=== PATIENT | female | born 2000 | race Caucasian/White ===

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

== ENCOUNTER 2020-06-22 16:21 | Inpatient (IN) | payer BC ==
[2020-06-22] MEDS ORDERED: SODIUM CHLORIDE 0.9% 1,000 ML IV ONE (16:57)
[2020-06-22] MEDS: ACETAMINOPHEN TAB 500 MG TAB PO PRN ×2 (18:01→22:17)
[2020-06-22] MEDS: ONDANSETRON 4 MG/2 ML VIAL IVP PRN (18:01)
[2020-06-22] MEDS: busPIRone HCl 10 MG TAB PO SCH (20:12)
--- NOTE | 2020-06-22 21:25 | P.HPPD ---
History of Present Illness H&P Date: 06/22/20 Chief Complaint: Vomiting and abdominal pain 20yo F with history of anxiety disorder intermittently associated with somatic complaints of vomiting and abdominal pain, admitted from the office today after visit for intractable vomiting and abdominal pain. The patient reports always dealing with some level of GI symptoms, made worse by milk, but now having GI complaints of abdominal pain, nausea, vomiting, and diarrhea that has progressed over the past 4 days The patient reports periumbilical pain and c/o couldn't even walk last night because of the pain and vomited multiple times after eating [employer]. She has kept down liquids, but reports multiple e pisodes of diarrhea last night and has not kept down solids in over 24hrs. She brought a bucket with her to the office and had to use the bathroom while she was at the office. She is well appearing on exam, but with moderate periumbilical and mild RLQ pain Her wt is down 20# from last visit ~1y ago, but is at a healthy wt for height. She has been afebrile and has no URI symptoms. She feels a little light headed today. She is sexually active, but just finished her menses and urine HCG negative in the office today. She was sent to the outpatient lab for Labs and X-ray, but then called the office requesting admission, rather than observing overnight at home, as she had further vomiting while at the outpatient lab. Review of Systems Constitutional: Reports weight loss, Reports fair state of general health, Reports abnormal sleep Ears, nose, mouth, throat: Reports lightheadedness, Denies headaches, Denies sore throat Cardiovascular: Denies palpitations Respiratory: Denies shortness of breath, Denies cough Gastrointestinal: Reports change in appetite, Reports abdominal pain, Reports nausea, Reports vomiting, Reports diarrhea, Denies hematemesis, Denies constipation Genitourinary: Denies irregular menses, Denies dysmenorrhea Integumentary: Denies rash Psychiatric: Reports anxiety, Reports other (somatic complaints) Allergic/Immunologic: Reports reaction to food (c/o intolerance to milk), Denies reaction to drugs Past Medical History Past Medical History: Asthma, Pneumonia Additional Past Medical History / Comment(s): 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 History of Any Multi-Drug Resistant Organisms: None Reported Past Surgical History: Adenoidectomy, Ear Surgery Additional Past Surgical History / Comment(s): acl reconstruction of left knee- 2013, Past Anesthesia/Blood Transfusion Reactions: No Reported Reaction Past Psychological History: Anxiety (with somatoform disorder-psychogenic vomiting), Depression Additional Psychological History / Comment(s): insomnia. Smoking Status: Never smoker Past Alcohol Use History: None Reported Past Drug Use History: None Reported - Past Family History Mother Family Medical History: No Reported History Father Family Medical History: Hyperlipidemia Additional Family Medical History / Comment(s): none Medications and Allergies Home Medications Medication Instructions Recorded Confirmed Type buPROPion XL [Wellbutrin XL] 150 mg PO DAILY 06/22/20 06/22/20 History busPIRone HCL 5 mg PO BID 06/22/20 06/22/20 History Allergies Allergy/AdvReac Type Severity Reaction Status Date / Time ibuprofen AdvReac Nausea & Verified 04/02/18 22:03 Vomiting Milk Containing Products AdvReac Nausea & Verified 04/02/18 22:03 [Dairy] Vomiting orange juice [[place]] AdvReac Nausea & Verified 06/22/20 17:02 Vomiting Exam Osteopathic Statement: *. No significant issues noted on an osteopathic structural exam other than those noted in the History and Physical/Consult. Vital Signs Temp Pulse Resp BP Pulse Ox 06/22/20 16:35 98.2 F 86 18 127/81 99 Intake and Output 06/22/20 06/22/20 06/22/20 06:59 14:59 22:59 Output Total 200 Balance -200 Output: Urine 150 Emesis 50 Other: Voiding Method Toilet Weight 59.7 kg - General Appearance well appearing, cooperative, alert, no distress - Constitutional normal weight - HEENT Head: normocephalic Eyes: other (pupils equal and reactive, conjunctiva clear) - Mouth Lips: normal Teeth: normal dentition Tonsils: normal - Neck Neck: normal position, thyroid normal - Cardiovascular Pulse volume: normal Cardiovascular: regular rate - Gastrointestinal tender to palpation (periumilical tenderness moderate and mild LLQ pain) - Integumentary no rash - Neurological motor function normal - Musculoskeletal Musculoskeletal: normal - Psychiatric no abnormal behavior Results - Laboratory Findings CBC, CMP, amylase and lipase, CMP and ESR all normal. UA negative except for blood and culture pending. Abd Xray negative. - Diagnostic Findings Abdominal x-ray: report reviewed Assessment and Plan (1) Vomiting and diarrhea Narrative/Plan: Clear liquids and advance as tolerated. 0.9NS bolus followed by D5 1/2 NS with 20 KCl/L at 100ml/hr maintenance rate. Zofran PRN nausea 8mg IV Q6H/PRN. Current Visit: Yes Status: Acute Code(s): R11.10 - VOMITING, UNSPECIFIED; R19.7 - DIARRHEA, UNSPECIFIED SNOMED Code(s): 035704119 (2) Periumbilical abdominal pain Narrative/Plan: Admit for observation. Consult surgery for r/o appendicitis and recommendations for any further imaging. 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 Current Visit: Yes Status: Acute Code(s): F45.8 - OTHER SOMATOFORM DISORDERS SNOMED Code(s): 538426552 Time with Patient: Greater than 30
[2020-06-22] MEDS: D5-0.45% NACL WITH KCL 20MEQ/L 1,000 ML IV SCH (22:18)
[2020-06-23] MEDS: ONDANSETRON 4 MG/2 ML VIAL IVP PRN ×3 (00:26→14:15)
[2020-06-23] MEDS: D5-0.45% NACL WITH KCL 20MEQ/L 1,000 ML IV SCH ×2 (06:41→13:23)
[2020-06-23] MEDS: ACETAMINOPHEN TAB 500 MG TAB PO PRN ×4 (06:45→20:35)
[2020-06-23] MEDS: buPROPion XL 150 MG TAB.ER.24H PO SCH (08:17)
[2020-06-23] MEDS: busPIRone HCl 10 MG TAB PO SCH ×2 (08:17→20:35)
--- NOTE | 2020-06-23 12:56 | P.PN ---
Subjective Progress Note Date: 06/23/20 Principal diagnosis: vomiting and abdominal pain Patlient admitted with vomiting and abdominal pain, hydration improved s/p IV fluid bolus and maintenance fluids, labs all normal, X-ray normal, no real change in symptoms overnight, still unable to tolerate full PO liquids, and sti ll with mild abdominal pain. Surgery evaluating patient and ordered biliary scan from which patient is returning now. Objective - Vital Signs Vital signs: Vital Signs Temp 98.2 F 06/23/20 08:35 Pulse 78 06/23/20 08:35 Resp 16 06/23/20 08:35 BP 114/75 06/23/20 08:35 Pulse Ox 99 06/23/20 08:35 Intake & Output 06/22/20 06/23/20 06/23/20 18:59 06:59 18:59 Intake Total 800 Output Total 200 800 Balance -200 800 -800 Weight 59.7 kg Intake: Intake, IV Titration 800 Amount D5-0.45% NaCl with KCl 800 20Meq/l 1,000 ml @ 100 mls/hr IV [facility] Rx#: [id number] Output: Urine 150 800 Emesis 50 Other: Voiding Method Toilet # Voids 2 - Constitutional General appearance: Present: average body habitus, no acute distress - Respiratory Respiratory: bilateral: CTA - Cardiovascular Rhythm: regular Heart sounds: normal: S1, S2 - Gastrointestinal General gastrointestinal: Present: normal bowel sounds, soft. Absent: distended, organomegaly Localized gastrointestinal: tender: midline (periumbilical pain) - Integumentary Integumentary: Present: normal - Neurologic Neurologic: Absent: focal deficits - Allied health notes Allied health notes reviewed: nursing Assessment and Plan (1) Vomiting and diarrhea Narrative/Plan: Clear liquids and advance as tolerated. D5 1/2 NS with 20 KCl/L at 100ml/hr maintenance rate. Zofran PRN nausea 8mg IV Q6H/PRN. Will obtain stool sample if patient with diarrhea today. Current Visit: Yes Status: Acute Code(s): R11.10 - VOMITING, UNSPECIFIED; R19.7 - DIARRHEA, UNSPECIFIED SNOMED Code(s): 561945875 (2) Periumbilical abdominal pain Narrative/Plan: Admit for observation. Surgery consult pending, ordered hepatobiliary scan, results pending. 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 Current Visit: Yes Status: Acute Code(s): F45.8 - OTHER SOMATOFORM DISORDERS SNOMED Code(s): 130314602
--- NOTE | 2020-06-23 13:48 | P.GSCN ---
<Dasha Spencer - Last Filed: 06/23/20 13:40> History of Present Illness Consult date: 06/23/20 History of present illness: CHIEF COMPLAINT: Abdominal pain HISTORY OF PRESENT ILLNESS: This is a 20-year-old female with a known history of somatoform autonomic dysfunction with GI symptoms as well as depression, anxiety and lactose intolerance. She denies any surgical history. Patient was a direct admit from her PCP office for abdominal pain with nausea and vomiting. Patient reports she's had symptoms for about 4 days. Pain has been located in the right side of the abdomen including the right upper quadrant and down his right lower quadrant. She also had diarrhea yesterday. She is currently on a clear liquid diet. She had abdominal x-ray yesterday shows no acute findings. She is still complaining of abdominal pain. Patient evaluated by Dr. arnold this morning and he has ordered a HIDA scan. She denies any fevers. But she does admit to having some chills and sweats. Patient seen and examined by Dr. arnold PAST MEDICAL HISTORY: See list. PAST SURGICAL HISTORY: See list. MEDICATIONS: See list. ALLERGIES: See list. SOCIAL HISTORY: No illicit drug use. REVIEW OF SYSTEMS: CONSTITUTIONAL: Denies fever or chills. HEENT: Denies blurred vision, vision changes, or eye pain. Denies hemoptysis CARDIOVASCULAR: Denies chest pain or pressure. RESPIRATORY: No shortness of breath. GASTROINTESTINAL: See HPI for pertinent findings HEMATOLOGIC: Denies bleeding disorders. GENITOURINARY: Denies any blood in urine or increased urinary frequency. SKIN: Denies pruitis. Denies rash. PHYSICAL EXAM: VITAL SIGNS: Reviewed GENERAL: Well-developed in no acute distress. HEENT: No sclera icterus. Extraocular movements grossly intact. Moist buccal mucosa. Head is atraumatic, normocephalic. No nasal drainage. ABDOMEN: Soft. Nondistended. Tenderness with palpation of the right upper quadrant and right lower quadrant. NEUROLOGIC: Alert and oriented. Cranial nerves II through XII grossly intact. LABORATORY DATA: WBC 6.2 hemoglobin 15.7 platelets 274 Sodium 142 creatinine 0.84 AST ALT normal Lipase normal UA negative for infection IMAGING: See above ASSESSMENT: 1. Right upper quadrant Abdominal pain with nausea and vomiting PLAN: -Follow up on HIDA scan results -Continue clear liquid diet -Continue IV fluids -Further recommendations forthcoming per surgeon Physician Construction Carpenter note has been reviewed by physician. Signing provider agrees with the documented findings, assessment, and plan of care. 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 History of Any Multi-Drug Resistant Organisms: None Reported Past Surgical History: Adenoidectomy, Ear Surgery Additional Past Surgical History / Comment(s): acl reconstruction of left knee- 2013, Past Anesthesia/Blood Transfusion Reactions: No Reported Reaction Past Psychological History: Anxiety (with somatoform disorder-psychogenic vomiting), Depression Additional Psychological History / Comment(s): insomnia. Smoking Status: Never smoker Past Alcohol Use History: None Reported Past Drug Use History: None Reported - Past Family History Mother Family Medical History: No Reported History Father Family Medical History: Hyperlipidemia Additional Family Medical History / Comment(s): none Medications and Allergies Home Medications Medication Instructions Recorded Confirmed Type buPROPion XL [Wellbutrin XL] 150 mg PO DAILY 06/22/20 06/22/20 History busPIRone HCL 5 mg PO BID 06/22/20 06/22/20 History Allergies Allergy/AdvReac Type Severity Reaction Status Date / Time ibuprofen AdvReac Nausea & Verified 04/02/18 22:03 Vomiting Milk Containing Products AdvReac Nausea & Verified 04/02/18 22:03 [Dairy] Vomiting orange juice [[place]] AdvReac Nausea & Verified 06/22/20 17:02 Vomiting Surgical - Exam Vital Signs Temp Pulse Resp BP Pulse Ox 98.2 F 86 18 127/81 99 06/22/20 16:35 06/22/20 16:35 06/22/20 16:35 06/22/20 16:35 06/22/20 16:35 <Vitaly Arnold - Last Filed: 06/24/20 14:41> Surgical - Exam Vital Signs Temp Pulse Resp BP Pulse Ox 98.2 F 86 18 127/81 99 06/22/20 16:35 06/22/20 16:35 06/22/20 16:35 06/22/20 16:35 06/22/20 16:35 Results - Labs 06/24/20 06:00 06/24/20 06:00 Abnormal Lab Results - Last 24 Hours (Table) 06/24/20 Range/Units 06:00 BUN 5 L (7-17) mg/dL Alkaline Phosphatase 33 L (38-126) U/L Diabetes panel 06/24/20 Range/Units 06:00 Sodium 138 (137-145) mmol/L Potassium 4.5 (3.5-5.1) mmol/L Chloride 106 (98-107) mmol/L Carbon Dioxide 26 (22-30) mmol/L BUN 5 L (7-17) mg/dL Creatinine 0.92 (0.52-1.04) mg/dL Glucose 88 (74-99) mg/dL Calcium 9.3 (8.4-10.2) mg/dL AST 22 (14-36) U/L ALT 11 (4-34) U/L Alkaline Phosphatase 33 L (38-126) U/L Total Protein 6.9 (6.3-8.2) g/dL Albumin 4.1 (3.5-5.0) g/dL Calcium panel 06/24/20 Range/Units 06:00 Calcium 9.3 (8.4-10.2) mg/dL Albumin 4.1 (3.5-5.0) g/dL Pituitary panel 06/24/20 Range/Units 06:00 Sodium 138 (137-145) mmol/L Potassium 4.5 (3.5-5.1) mmol/L Chloride 106 (98-107) mmol/L Carbon Dioxide 26 (22-30) mmol/L BUN 5 L (7-17) mg/dL Creatinine 0.92 (0.52-1.04) mg/dL Glucose 88 (74-99) mg/dL Calcium 9.3 (8.4-10.2) mg/dL Adrenal panel 06/24/20 Range/Units 06:00 Sodium 138 (137-145) mmol/L Potassium 4.5 (3.5-5.1) mmol/L Chloride 106 (98-107) mmol/L Carbon Dioxide 26 (22-30) mmol/L BUN 5 L (7-17) mg/dL Creatinine 0.92 (0.52-1.04) mg/dL Glucose 88 (74-99) mg/dL Calcium 9.3 (8.4-10.2) mg/dL Total Bilirubin 1.3 (0.2-1.3) mg/dL AST 22 (14-36) U/L ALT 11 (4-34) U/L Alkaline Phosphatase 33 L (38-126) U/L Total Protein 6.9 (6.3-8.2) g/dL Albumin 4.1 (3.5-5.0) g/dL Assessment and Plan Plan: Patient's HIDA scan shows a 4% ejection fraction consistent with chronic cholecystitis and biliary dyskinesia. Patient will undergo laparoscopic cholecystectomy.
--- NOTE | 2020-06-23 14:07 | NM ---
EXAMINATION TYPE: NM hepatobiliary w CCK DATE OF EXAM: 06/23/2020 COMPARISON: CT 05/16/2018 HISTORY: Abdominal pain and nausea TECHNIQUE: After the intravenous administration of 4 mCi Tc 99m Mebrofenin hepatobiliary scintigraphy is performed. Immediate images post injection. FINDINGS: There is satisfactory initial accumulation of tracer by the liver. The gallbladder is visualized wit hin 4 minutes. The small bowel activity is noted within 38 minutes. At one hour CCK was administere d, patient was injected with 1.2 mcg of Kinevac, and gallbladder ejection fraction is calculated at 4 %, in the abnormal low range. Therefore there is no scintigraphic evidence of cystic or common bile duct obstruction to suggest acute cholecystitis. IMPRESSION: Abnormal low gallbladder ejection fraction, correlate for possible gallbladder dyskinesia
[2020-06-23] MEDS: PANTOPRAZOLE 40 MG/10 ML VIAL IVP SCH (16:08)
[2020-06-24] MEDS: D5-0.45% NACL WITH KCL 20MEQ/L 1,000 ML IV SCH ×3 (00:13→19:04)
[2020-06-24] MEDS: ACETAMINOPHEN TAB 500 MG TAB PO PRN ×2 (04:07→20:01)
[2020-06-24] MEDS ORDERED: MORPHINE SULFATE 2 MG/ML SYRINGE IVP PRN (06:14)
[2020-06-24 06:27] LABS: Basophils % (A) 1 %; Eosinophils # (A) 0.2 k/uL (0-0.7); Eosinophils % (A) 4 %; HCT 42.4 % (34.0-46.0); Lymphocytes # (A) 2.1 k/uL (1.0-4.8); Lymphocytes % (A) 45 %; MCH 31.9 pg (25.0-35.0); MCV 96.8 fL (80.0-100.0); Mean Platelet Volume 8.1; Monocytes # (A) 0.3 k/uL (0-1.0); Monocytes % (A) 6 %; Neutrophils % (A) 42 %; Platelet Count 227 k/uL (150-450); RBC 4.38 m/uL (3.80-5.40); RDW 12.1 % (11.5-15.5); WBC 4.6 k/uL (4.0-11.0)
[2020-06-24 06:36] LABS: ALT 11 U/L (4-34); AST 22 U/L (14-36); African American GFR (CKD) >90 (>60 ml/min/1.73 sqM); Albumin 4.1 g/dL (3.5-5.0); Alkaline Phosphatase 33 U/L (38-126); Anion Gap 6 mmol/L; Blood Urea Nitrogen 5 mg/dL (7-17); Calcium 9.3 mg/dL (8.4-10.2); Carbon Dioxide 26 mmol/L (22-30); Chloride 106 mmol/L (98-107); Glucose 88 mg/dL (74-99); Non-African American GFR(CKD) >90 (>60 ml/min/1.73 sqM); Potassium 4.5 mmol/L (3.5-5.1); Sodium 138 mmol/L (137-145); Total Bilirubin 1.3 mg/dL (0.2-1.3); Total Protein 6.9 g/dL (6.3-8.2)
[2020-06-24] MEDS: MORPHINE SULFATE 2 MG/ML SYRINGE IVP PRN ×3 (08:18→12:28)
[2020-06-24] MEDS: buPROPion XL 150 MG TAB.ER.24H PO SCH (08:21)
[2020-06-24] MEDS: busPIRone HCl 10 MG TAB PO SCH ×2 (08:21→21:35)
[2020-06-24] MEDS: PANTOPRAZOLE 40 MG/10 ML VIAL IVP SCH (08:24)
[2020-06-24] MEDS: ONDANSETRON 4 MG/2 ML VIAL IVP PRN ×2 (08:25→18:57)
[2020-06-24] MEDS ORDERED: IV FLUID CONTINUATION 650 ML IV ONE (13:55)
[2020-06-24] MEDS ORDERED: HEPARIN SODIUM,PORCINE/PF 5,000 UNIT/0.5 ML SYRINGE SQ ONE (14:06)
[2020-06-24] MEDS ORDERED: ONDANSETRON 4 MG/2 ML VIAL ONE (14:07)
[2020-06-24] MEDS ORDERED: MIDAZOLAM 2 MG/2 ML VIAL IV ONE (14:13)
[2020-06-24] MEDS ORDERED: DEXAMETHASONE SOD PHOSPHATE 4 MG/ML 1 ML VIAL IV ONE (14:20)
[2020-06-24] MEDS ORDERED: LACTATED RINGERS 1,000 ML IV ONE ×2 (14:21→15:41)
[2020-06-24] MEDS ORDERED: HEPARIN SODIUM,PORCINE 5,000 UNIT/ML 1 ML VIAL SQ ONE (14:39)
[2020-06-24] MEDS ORDERED: ROCURONIUM 10 MG/ML (5 ML VIAL) IV ONE (15:01)
[2020-06-24] MEDS ORDERED: LIDOCAINE 1% INJ 10MG/ML (20 ML MDV) ONE (15:01)
[2020-06-24] MEDS ORDERED: SUCCINYLCHOLINE CHLORIDE 100 MG/5 ML SYR IV ONE (15:01)
[2020-06-24] MEDS ORDERED: NEOSTIGMINE 1 MG/ML 10 ML VIAL ONE (15:01)
[2020-06-24] MEDS ORDERED: PROPOFOL 10 MG/ML 20 ML VIAL IV ONE (15:01)
[2020-06-24] MEDS ORDERED: fentaNYL (PF) 50 MCG/ML 2 ML AMP ONE (15:01)
[2020-06-24] MEDS ORDERED: MIDAZOLAM 2 MG/2 ML VIAL ONE (15:01)
[2020-06-24] MEDS ORDERED: GLYCOPYRROLATE 0.2 MG/ML 2 ML VIAL ONE (15:01)
[2020-06-24] MEDS ORDERED: BUPIVACAINE (PF) 0.25% 30 ML VIAL SQ ONE (15:26)
--- NOTE | 2020-06-24 15:55 | P.OP ---
Date of Procedure: 06/24/20 Preoperative Diagnosis: Cholecystitis Postoperative Diagnosis: Cholecystitis Procedure(s) Performed: Laparoscopic cholecystectomy Anesthesia: TEJINDER Surgeon: Vitaly Damon Estimated Blood Loss (ml): 5 Pathology: other (Gallbladder) Condition: stable Disposition: PACU Description of Procedure: The patient was placed on the operating table. The patient received a general endotracheal tube anesthesia. The patients abdomen was prepped and draped in the usual sterile fashion. Through an infraumbilical stab incision, the fascia of the anterior abdominal wall was grasped with a pair of Kochers and then the Veress needle was placed in the peritoneal cavity. Position of the Veress needle was confirmed with positive drop test. The abdomen was then insufflated. After adequate insufflation, the 10 mm trocar was placed in the peritoneal cavity. Following this the laparoscope was placed in the peritoneal cavity. The patient was placed in the head-up, right side up position and then a 5 mm trocar was placed in the right lateral and right subcostal position under direct visualization. A 8 mm trocar was placed in the epigastric position. The gallbladder was grasped in the fundus and infundibulum. Traction on the gallbladder was placed in the lateral and the cephalad positions. The triangle of Calot was visualized.. The cystic duct was bluntly dissected until the union of the cystic duct and common bile duct was seen. A critical view of safety was achieved. The cystic duct was then divided and sealed with the Harmonic scissors. A PDS Endoloop was then placed throughout the cystic duct stump. The cystic artery divided and sealed with the Harmonic scissors. The gallbladder was then removed from the liver bed using Harmonic scissors. The gallbladder was then extracted through the epigastric port site. Operative field was checked for any bleeding spots and Harmonic scissors was used to coagulate the liver bed. The abdomen was irrigated. The trocars were removed. The skin was closed using interrupted 3-0 Vicryl suture. Dermabond dressing were applied. The patient tolerated the procedure well.
[2020-06-24] MEDS ORDERED: HYDROmorphone 0.5 MG/0.5 ML SYRINGE IVP ONE ×2 (16:12→16:24)
[2020-06-24] MEDS ORDERED: diphenhydrAMINE 50 MG/ML 1 ML VIAL IVP ONE (16:30)
[2020-06-24] MEDS: HYDROmorphone 1 MG/ML 1 ML SYRINGE IVP PRN ×5 (17:43→23:43)
[2020-06-24] MEDS: KETOROLAC 15 MG/ML 1 ML VIAL IVP PRN (18:53)
--- NOTE | 2020-06-24 22:54 | P.PN ---
Subjective Progress Note Date: 06/24/20 Principal diagnosis: vomiting and abdominal pain Patlient admitted with vomiting and abdominal pain, hydration improved s/p IV fluid bolus and maintenance fluids, labs all normal, X-ray normal, symptoms persistent, evaluated by Surgery with HIDA scan yesterday c/w biliary dyskines ia, and patient taken to OR today for elective laparoscopic cholecystectomy, returned to Peds unit around 6pm post-operatively, after uncomplicated cholecystectomy. Objective - Vital Signs Vital signs: Vital Signs Temp 97.7 F 06/24/20 17:10 Pulse 94 06/24/20 18:30 Resp 18 06/24/20 18:30 BP 129/83 06/24/20 18:30 Pulse Ox 98 06/24/20 18:30 Intake & Output 06/24/20 06/24/20 06/25/20 06:59 18:59 06:59 Intake Total 800 1625 Output Total 800 1705 Balance 0 -80 Intake: IV 1625 Intake, IV Titration 800 Amount D5-0.45% NaCl with KCl 800 20Meq/l 1,000 ml @ 100 mls/hr IV .Q10H ERY Rx#: [id number] Output: Urine 800 1700 Estimated Blood Loss 5 Other: Voiding Method Toilet Toilet # Voids 2 1 - Constitutional Constitutional Comment(s): appears to be in pain, still somewhat sedated on exam post-operatively, taking ice chips with mother at bedside. General appearance: Present: average body habitus - Respiratory Respiratory: bilateral: CTA - Cardiovascular Rhythm: regular Heart sounds: normal: S1, S2 - Gastrointestinal Gastrointestinal Comment(s): tender abdomen, dressings intact - Labs CBC & Chem 7: 06/24/20 06:00 06/24/20 06:00 Labs: Abnormal Lab Results - Last 24 Hours (Table) 06/24/20 Range/Units 06:00 BUN 5 L (7-17) mg/dL Alkaline Phosphatase 33 L (38-126) U/L Assessment and Plan (1) Vomiting and diarrhea Current Visit: Yes Status: Acute Code(s): R11.10 - VOMITING, UNSPECIFIED; R19.7 - DIARRHEA, UNSPECIFIED SNOMED Code(s): 951366147 (2) Periumbilical abdominal pain Current Visit: Yes Status: Acute Code(s): R10.33 - PERIUMBILICAL PAIN SNOMED Code(s): 278428677 (3) Somatoform autonomic dysfunction of upper gastrointestinal tract Current Visit: Yes Status: Acute Code(s): F45.8 - OTHER SOMATOFORM DISORDERS SNOMED Code(s): 876599559 (4) Biliary dyskinesia Narrative/Plan: General Surgery consulted for persistent vomiting and abdominal pain. HIDA scan showed low ejection fraction c/w biliary dyskinesia. Patient taken to OR 06/24 for elective laparoscopic cholecystectomy. Surgery was uncompicated and patient returned to Pediatric unit in stable condition, c/o pain, written for Dilaudid for analgesia. Toradol added 15mg IV Q6H. Mother is at bedside with patient and her questions and concerns were addressed to the best of my ability. Current Visit: Yes Status: Acute Code(s): K82.8 - OTHER SPECIFIED DISEASES OF GALLBLADDER SNOMED Code(s): 615130960 Time with Patient: Less than 30
[2020-06-25] MEDS: KETOROLAC 15 MG/ML 1 ML VIAL IVP PRN ×4 (00:52→20:13)
[2020-06-25] MEDS: HYDROmorphone 1 MG/ML 1 ML SYRINGE IVP PRN ×5 (02:18→17:06)
[2020-06-25] MEDS: D5-0.45% NACL WITH KCL 20MEQ/L 1,000 ML IV SCH (04:12)
[2020-06-25 06:55] LABS: Basophils % (A) 0 %; Eosinophils # (A) 0.1 k/uL (0-0.7); Eosinophils % (A) 1 %; HCT 39.5 % (34.0-46.0); HGB 13.2 gm/dL (11.4-16.0); Lymphocytes % (A) 20 %; MCH 32.4 pg (25.0-35.0); MCHC 33.5 g/dL (31.0-37.0); MCV 96.5 fL (80.0-100.0); Mean Platelet Volume 8.2; Monocytes # (A) 0.7 k/uL (0-1.0); Monocytes % (A) 7 %; Neutrophils % (A) 71 %; Platelet Count 235 k/uL (150-450); RBC 4.09 m/uL (3.80-5.40); WBC 9.8 k/uL (4.0-11.0)
[2020-06-25 07:07] LABS: ALT 15 U/L (4-34); AST 28 U/L (14-36); African American GFR (CKD) >90 (>60 ml/min/1.73 sqM); Albumin 3.7 g/dL (3.5-5.0); Alkaline Phosphatase 35 U/L (38-126); Anion Gap 6 mmol/L; Blood Urea Nitrogen 5 mg/dL (7-17); Carbon Dioxide 28 mmol/L (22-30); Chloride 101 mmol/L (98-107); Glucose 88 mg/dL (74-99); Non-African American GFR(CKD) >90 (>60 ml/min/1.73 sqM); Potassium 4.4 mmol/L (3.5-5.1); Sodium 135 mmol/L (137-145); Total Bilirubin 1.2 mg/dL (0.2-1.3); Total Protein 6.4 g/dL (6.3-8.2)
[2020-06-25] MEDS: busPIRone HCl 10 MG TAB PO SCH ×2 (08:27→20:14)
[2020-06-25] MEDS: PANTOPRAZOLE 40 MG/10 ML VIAL IVP SCH (08:27)
[2020-06-25] MEDS: buPROPion XL 150 MG TAB.ER.24H PO SCH (08:28)
--- NOTE | 2020-06-25 10:35 | P.PN ---
Subjective Progress Note Date: 06/25/20 Principal diagnosis: vomiting and abdominal pain 20yo F POD#1 s/p laparoscopic cholecystectomy for biliary dyskinesia with intractible vomiting. Patient with poor pain control this morning, rating her pain a 7, but appears to be in significant pain, not yet able to take any PO mor e than ice chips, still with nausea. Objective - Vital Signs Vital signs: Vital Signs Temp 98.5 F 06/25/20 08:40 Pulse 103 H 06/25/20 08:40 Resp 14 06/25/20 08:40 BP 108/68 06/25/20 08:40 Pulse Ox 94 L 06/25/20 08:40 Intake & Output 06/24/20 06/25/20 06/25/20 18:59 06:59 18:59 Intake Total 1625 Output Total 1705 700 Balance -80 -700 Intake: IV 1625 Output: Urine 1700 700 Estimated Blood Loss 5 Other: Voiding Method Toilet # Voids 1 1 - Constitutional General appearance: Present: average body habitus - EENT Eyes: Present: normal appearance ENT: Present: other (dry mucous membranes) - Respiratory Respiratory: bilateral: CTA (poor inspiratory effort due to pain) - Cardiovascular Rhythm: regular Heart sounds: normal: S1, S2 - Gastrointestinal General gastrointestinal: Present: decreased bowel sounds (very minimal, tender over entire right abdomen to light pressure) - Integumentary Integumentary: Present: normal - Psychiatric Psychiatric Comment(s): patient feeling discouraged due to pain and persistent nausea, explained that it is expected and should gradulally improve once her bowels start moving again, and reassured we will not push for discharge today. - Allied health notes Allied health notes reviewed: nursing - Labs CBC & Chem 7: 06/25/20 06:08 06/25/20 06:08 Labs: Abnormal Lab Results - Last 24 Hours (Table) 06/25/20 Range/Units 06:08 Sodium 135 L (137-145) mmol/L BUN 5 L (7-17) mg/dL Alkaline Phosphatase 35 L (38-126) U/L Assessment and Plan (1) Vomiting and diarrhea Narrative/Plan: Patient admitted with intractible vomiting. Diarrhea resolved. Patient dx'd with biliary dyskinesia and had cholecystectomy on 06/24, still with nausea and unable to tolerate PO POD#1. Current Visit: Yes Status: Acute Code(s): R11.10 - VOMITING, UNSPECIFIED; R19.7 - DIARRHEA, UNSPECIFIED SNOMED Code(s): 617837729 (2) Somatoform autonomic dysfunction of upper gastrointestinal tract Narrative/Plan: Continue Wellbutrin 150mg QD and Buspirone 10mg PO BID Patient will likely continue to have some psychosomatic component to her GI dysfunction and this is expected to be a edd in her recovery that will need to be addressed. Current Visit: Yes Status: Acute Code(s): F45.8 - OTHER SOMATOFORM DISORDERS SNOMED Code(s): 997946953 (3) Biliary dyskinesia Narrative/Plan: General Surgery consulted for persistent vomiting and abdominal pain. HIDA scan showed low ejection fraction c/w biliary dyskinesia. Patient taken to OR 06/24 for elective laparoscopic cholecystectomy. Surgery was uncompicated and patient returned to Pediatric unit in stable condition, c/o pain, written for Dilaudid for analgesia. Toradol added 15mg IV Q6H. POD#1, still with nausea, unable to tolerate PO, and with poor pain control upon attempts to transition to oral meds, likely will need to stay another day. Current Visit: Yes Status: Acute Code(s): K82.8 - OTHER SPECIFIED DISEASES OF GALLBLADDER SNOMED Code(s): 270091627 Time with Patient: Greater than 30
[2020-06-25] MEDS: ACETAMINOPHEN TAB 500 MG TAB PO PRN ×2 (10:50→17:06)
[2020-06-25] MEDS: SIMETHICONE 40 MG/0.6 ML DROPS 2,000 MG/30 ML BOTTLE PO SCH ×3 (10:51→20:52)
[2020-06-25] MEDS: D5-0.9% NACL WITH KCL 20 MEQ/L 1,000 ML IV SCH (14:12)
--- NOTE | 2020-06-25 14:16 | P.PN ---
Subjective Progress Note Date: 06/25/20 CHIEF COMPLAINT: Cholecystitis HISTORY OF PRESENT ILLNESS: Patient is postop day #1 status post laparoscopic cholecystectomy for cholecystitis. She did have a low EF on HIDA scan with evidence of gallbladder dyskinesia. Patient is complaining of right-sided abdominal pain. Poor oral intake. Also having nausea. She is not passing gas or have bowel movement yet. She's afebrile. White count 9.8 hemoglobin 13.2 platelets 235 Patient seen and examined with Dr. arnold PHYSICAL EXAM: VITAL SIGNS: Reviewed. GENERAL: Well-developed in no acute distress. HEENT: No sclera icterus. Extraocular movements grossly intact. Moist buccal mucosa. Head is atraumatic, normocephalic. ABDOMEN: Soft. Nondistended. Tenderness to palpation of the right side of the abdomen. Incision sites clean dry and intact NEUROLOGIC: Alert and oriented. Cranial nerves II through XII grossly intact. ASSESSMENT: 1. Cholecystitis status post laparoscopic cholecystectomy 2. Gallbladder dyskinesia PLAN: -From surgical standpoint patient can be discharged home when medically cleared -Encouraged patient to ambulate -Add simethicone drops for gas pain -Continue current pain medications -Encouraged patient to use incentive spirometer Physician Foam Dispenser note has been reviewed by physician. Signing provider agrees with the documented findings, assessment, and plan of care. Objective - Vital Signs Vital signs: Vital Signs Temp 98.5 F 06/25/20 08:40 Pulse 103 H 06/25/20 08:40 Resp 14 06/25/20 08:40 BP 108/68 06/25/20 08:40 Pulse Ox 94 L 06/25/20 08:40 Intake & Output 06/24/20 06/25/20 06/25/20 18:59 06:59 18:59 Intake Total 1625 Output Total 1705 700 400 Balance -80 -700 -400 Intake: IV 1625 Output: Urine 1700 700 400 Estimated Blood Loss 5 Other: Voiding Method Toilet # Voids 1 1 - Labs CBC & Chem 7: 06/25/20 06:08 06/25/20 06:08 Labs: Abnormal Lab Results - Last 24 Hours (Table) 06/25/20 Range/Units 06:08 Sodium 135 L (137-145) mmol/L BUN 5 L (7-17) mg/dL Alkaline Phosphatase 35 L (38-126) U/L
[2020-06-25 14:37] VITALS: RESP 16
[2020-06-25] MEDS ORDERED: LORazepam 1 MG TAB PO PRN ×2 (17:57→21:00)
[2020-06-25] MEDS ORDERED: LORazepam 0.5 MG TAB PO PRN (18:49)
[2020-06-26] MEDS: D5-0.9% NACL WITH KCL 20 MEQ/L 1,000 ML IV SCH ×2 (01:13→08:07)
[2020-06-26] MEDS: KETOROLAC 15 MG/ML 1 ML VIAL IVP PRN ×3 (01:13→13:35)
[2020-06-26] MEDS: busPIRone HCl 10 MG TAB PO SCH (08:10)
[2020-06-26] MEDS: buPROPion XL 150 MG TAB.ER.24H PO SCH (08:10)
[2020-06-26] MEDS: PANTOPRAZOLE 40 MG/10 ML VIAL IVP SCH (08:11)
[2020-06-26] MEDS: SIMETHICONE 40 MG/0.6 ML DROPS 2,000 MG/30 ML BOTTLE PO SCH ×2 (08:11→13:36)
[2020-06-26] MEDS ORDERED: polyethylene glycoL 3350 17 GM POWD.PACK PO STA (13:34)
--- NOTE | 2020-06-26 13:40 | P.PN ---
Subjective Progress Note Date: 06/26/20 CHIEF COMPLAINT: Cholecystitis HISTORY OF PRESENT ILLNESS: Patient is postop day #2 status post laparoscopic cholecystectomy for cholecystitis. She did have a low EF on HIDA scan with evidence of gallbladder dyskinesia. Patient does report some improvement in her abdominal pain she reports improvement in her nausea. She's tolerated small amount of her diet. She has been up and ambulating. Afebrile. No new labs for today Patient seen and examined with Dr. Damon PHYSICAL EXAM: VITAL SIGNS: Reviewed. GENERAL: Well-developed in no acute distress. HEENT: No sclera icterus. Extraocular movements grossly intact. Moist buccal mucosa. Head is atraumatic, normocephalic. ABDOMEN: Soft. Nondistended. Patient has mild tenderness with palpation around incision sites. Incision sites clean dry and intact NEUROLOGIC: Alert and oriented. Cranial nerves II through XII grossly intact. ASSESSMENT: 1. Cholecystitis status post laparoscopic cholecystectomy 2. Gallbladder dyskinesia PLAN: -From surgical standpoint patient can be discharged home when medically cleared -Encouraged patient to ambulate -Continue current pain medications -Encouraged patient to use incentive spirometer Physician Shale Planer Operator Helper note has been reviewed by physician. Signing provider agrees with the documented findings, assessment, and plan of care. Objective - Vital Signs Vital signs: Vital Signs Temp 98.0 F 06/26/20 08:30 Pulse 77 06/26/20 08:30 Resp 16 06/26/20 08:30 BP 107/68 06/26/20 08:30 Pulse Ox 98 06/26/20 08:30 Intake & Output 06/25/20 06/26/20 06/26/20 18:59 06:59 18:59 Output Total 1000 610 Balance -1000 -610 Output: Urine 1000 600 Emesis 10 Other: # Voids 1 1 1 - Labs CBC & Chem 7: 06/25/20 06:08 06/25/20 06:08
--- NOTE | 2020-06-26 14:06 | P.DS ---
Providers Date of admission: 06/25/20 07:27 Expected date of discharge: 06/26/20 Attending physician: Adelaida Pang Consults: 06/22/20 17:00 Consult Physician Routine Consulting Provider: Vitlay Damon Consult Reason/Comments: abdominal pain r/o appendicitis. Do you want consulting provider notified?: Yes Primary care physician: Adelaida Pang - Discharge Diagnosis(es) (1) Vomiting and diarrhea Patient admitted with intractable vomiting, required IV hydration and antiemetics, dx'd with bilary dyskinesia, now POD#2 s/p laparoscopic cholecystectomy, still with nausea, but tolerating PO clears and soft foods for >12 hrs now. Current Visit: Yes Status: Acute (2) Somatoform autonomic dysfunction of upper gastrointestinal tract Patient with history of somatoform disorder of upper GI tract with frequent abdominal pain and frequent nasea with hx of psychogenic vomiting in the past, follows with Psychiatry and has been continued of Wellbutrin and Buspar through hospitalization. Patient did have moderate anxiety post-op and did require Ativan x2 doses yesterday, none today, stable for discharge with routine follow up with her mental health provider. Current Visit: Yes Status: Acute (3) Biliary dyskinesia Patient POD#2 s/p laparoscopic cholecystectomy for biliary dyskinesia and suspected chronic cholecystitis, improved pain control today, tollerating full liquids, good bowel sounds, cleared for discharge from surgical standpoint once passing gas or BM. Patient requesting Miralax to stimulate BM/gas today, should be able to go home this afternoon. Patient will be discharged on OTC pain re liever only, Tylenol ES 500mg PO Q4H/PRN pain, and will offer Toradol as well. Patient will follow up in [address] Schneider and in about 1 wk with me as well. No work, no heavy lifting, pushing, pulling for 2 weeks. Current Visit: Yes Status: Acute Patient Condition at Discharge: Good Plan - Discharge Summary Discharge Rx Participant: Yes New Discharge Prescriptions: New Ketorolac [Toradol] 10 mg PO Q6HR PRN #10 tab PRN Reason: Moderate Pain Omeprazole Magnesium [PriLOSEC OTC] 20 mg PO AC-BID #14 tablet.[address] Zazueta Action busPIRone HCL 5 mg PO BID buPROPion XL [Wellbutrin XL] 150 mg PO DAILY Discharge Medication List buPROPion XL [Wellbutrin XL] 150 mg PO DAILY 06/22/20 [History] busPIRone HCL 5 mg PO BID 06/22/20 [History] Ketorolac [Toradol] 10 mg PO Q6HR PRN #10 tab 06/26/20 [Rx] Omeprazole Magnesium [PriLOSEC OTC] 20 mg PO AC-BID #14 tablet. 06/26/20 [Rx] Follow up Appointment(s)/Referral(s): Vitaly Damon MD [STAFF PHYSICIAN] - 1 Week Adelaida Pang DO [Primary Care Provider] - 1 Week Activity/Diet/Wound Care/Special Instructions: No lifting over 10 pounds You may shower. No soaking or tub baths for 2 weeks Very light activity until you are reevaluated at your follow up appointment with your surgeon
[2020-06-26 14:14] VITALS: BP 125/78; PULSE 76; TEMP 97.8
== END 2020-06-26 15:30 | disposition home or self-care (01) | DRG 419 ==
LOC: 6PED 16:25 → OBSVTOIN 06-25 07:27
PROVIDERS: ADMIT Pediatrics; ATTEND Pediatrics
PROC: 0FT44ZZ Resection of Gallbladder, Percutaneous Endoscopic Approach (ICD-10-PCS; principal; 2020-06-24 07:30)
DX: K81.1 Chronic cholecystitis (principal); G90.9 Disorder of the autonomic nervous system, unspecified; R11.2 Nausea with vomiting, unspecified; R19.7 Diarrhea, unspecified; R10.33 Periumbilical pain; F32.9 Major depressive disorder, single episode, unspecified; F41.9 Anxiety disorder, unspecified; F45.9 Somatoform disorder, unspecified; F50.89 Other specified eating disorder; J45.909 Unspecified asthma, uncomplicated; K81.9 Cholecystitis, unspecified; Z79.899 Other long term (current) drug therapy
CPT/HCPCS: 78227; 80053; 81025; 85025; 88304

== ENCOUNTER → 2020-06-22 | Outpatient (CLI) | payer BC ==
[2020-06-22 15:21] LABS: Basophils % (A) 1 %; Eosinophils # (A) 0.1 k/uL (0-0.7); Eosinophils % (A) 2 %; HCT 47.5 % (34.0-46.0); HGB 15.7 gm/dL (11.4-16.0); Lymphocytes # (A) 1.8 k/uL (1.0-4.8); Lymphocytes % (A) 30 %; MCH 32.1 pg (25.0-35.0); MCHC 33.1 g/dL (31.0-37.0); MCV 96.8 fL (80.0-100.0); Mean Platelet Volume 7.9; Monocytes # (A) 0.3 k/uL (0-1.0); Monocytes % (A) 4 %; Neutrophils # (A) 3.8 k/uL (1.3-7.7); Neutrophils % (A) 61 %; Platelet Count 274 k/uL (150-450); RBC 4.91 m/uL (3.80-5.40); RDW 12.2 % (11.5-15.5); WBC 6.2 k/uL (4.0-11.0)
[2020-06-22 15:32] LABS: ALT 15 U/L (4-34); AST 25 U/L (14-36); African American GFR (CKD) >90 (>60 ml/min/1.73 sqM); Albumin 5.1 g/dL (3.5-5.0); Albumin/Globulin Ratio 1.5; Alkaline Phosphatase 46 U/L (38-126); Amylase 58 U/L (30-110); Anion Gap 9 mmol/L; Blood Urea Nitrogen 9 mg/dL (7-17); C Reactive Protein <0.5 mg/dL (<1.0); Calcium 10.1 mg/dL (8.4-10.2); Carbon Dioxide 28 mmol/L (22-30); Chloride 105 mmol/L (98-107); Globulin 3.4 g/dL; Glucose 91 mg/dL (74-99); Lipase 51 U/L (23-300); Non-African American GFR(CKD) >90 (>60 ml/min/1.73 sqM); Potassium 4.8 mmol/L (3.5-5.1); Sodium 142 mmol/L (137-145); Total Bilirubin 0.8 mg/dL (0.2-1.3); Total Protein 8.5 g/dL (6.3-8.2)
[2020-06-22 16:04] LABS: Erythrocyte Sedimentation Rate 5 mm/hr (0-20)
--- NOTE | 2020-06-22 16:28 | XR ---
2 view abdomen HISTORY: Abdominal pain 2 views the abdomen There is a metallic post through the umbilical integument. No evident bowel obstruction or pneumoperi toneum. No pathologic calcification. Bone mineralization is normal. Lung bases are clear. There is a slight spinal curvature. IMPRESSION: No acute finding is evident.
== END | disposition home or self-care (01) ==
LOC: LABWHC1 14:40
PROVIDERS: ATTEND Pediatrics
DX: R10.33 Periumbilical pain (principal); R10.84 Generalized abdominal pain
CPT/HCPCS: 36415; 74019; 80053; 82150; 83690; 85025; 85652; 86140

== ENCOUNTER → 2020-11-17 | Outpatient (CLI) | payer BC ==
--- NOTE | 2020-11-17 12:58 | XR ---
EXAMINATION TYPE: XR chest 2V DATE OF EXAM: 11/17/2020 COMPARISON: Chest x-ray 11/24/2016 HISTORY: J06.9, cough TECHNIQUE: Frontal and lateral views of the chest are obtained. FINDINGS: There is no focal air space opacity, pleural effusion, or pneumothorax seen. The cardiac silhouette size is within normal limits. The osseous structures are intact, there is a slight spina l curvature. IMPRESSION: No acute cardiopulmonary process.
[2020-11-17 15:06] LABS: Basophils # (A) 0.04 X 10*3/uL (0.00-0.10); Basophils % (A) 0.4 %; Eosinophils # (A) 0.28 X 10*3/uL (0.04-0.35); Eosinophils % (A) 2.9 %; HCT 43.4 % (37.2-46.3); HGB 14.5 g/dL (12.0-15.0); Lymphocytes # (A) 1.81 X 10*3/uL (0.90-5.00); Lymphocytes % (A) 18.5 %; MCH 32.4 pg (27.0-32.0); MCHC 33.4 g/dL (32.0-37.0); MCV 96.9 fL (80.0-97.0); Mean Platelet Volume 10.9 fL (9.5-12.2); Monocytes # (A) 0.61 X 10*3/uL (0.20-1.00); Monocytes % (A) 6.2 %; Neutrophils # (A) 7.02 X 10*3/uL (1.80-7.70); Neutrophils % (A) 71.5 %; Platelet Count 311 X 10*3/uL (140-440); RBC 4.48 X 10*6/uL (4.10-5.20); RDW 11.9 % (11.5-14.5); WBC 9.81 X 10*3/uL (4.50-10.00)
[2020-11-18 01:25] LABS: African American GFR (CKD) 168.9 (60.0-200.0); Albumin 4.9 g/dL (3.8-4.9); Albumin/Globulin Ratio 1.86 (1.60-3.17); BUN/Creat Ratio 23.17 Ratio (12.00-20.00); Blood Urea Nitrogen 10.1 mg/dL (9.0-27.0); Calcium 9.6 mg/dL (8.7-10.3); Carbon Dioxide 24.9 mmol/L (21.6-31.8); Globulin 2.6 g/dL (1.6-3.3); Non-African American GFR(CKD) 145.8 (60.0-200.0); Potassium 4.3 mmol/L (3.5-5.5); Total Bilirubin 0.4 mg/dL (0.30-1.20); Total Protein 7.5 g/dL (6.2-8.2)
== END | disposition home or self-care (01) ==
LOC: LABWHC1 09:22
PROVIDERS: ATTEND Family Medicine
DX: Z20.822 Contact with and (suspected) exposure to COVID-19 (principal); J06.9 Acute upper respiratory infection, unspecified
CPT/HCPCS: 80053; 85025; 71046; 36415; U0003

== ENCOUNTER 2021-03-21 12:05 | Emergency (ER) | payer BC ==
[2021-03-21 12:24] VITALS: RESP 18
[2021-03-21] MEDS ORDERED: IBUPROFEN 600 MG TAB PO STA (12:49)
--- NOTE | 2021-03-21 12:59 | ED ---
General Adult HPI - General Chief complaint: Shortness of Breath Stated complaint: YULIYA,headache Time Seen by Provider: 03/21/21 12:10 Source: patient, family, RN notes reviewed, old records reviewed Mode of arrival: ambulatory Limitations: no limitations - History of Present Illness Initial comments: This is a 20-year-old female presents emergency Department stating that she has been tested positive for COVID and she comes in today because she is short of breath and continues coughing. Patient still has a fever. Patient states he was symptomatic starting on night. Patient denies any abdominal pain. Patient's any chest pain. Patient denies any vomiting or diarrhea. Patient states she feels fatigued and lightheaded. - Related Data Home Medications Medication Instructions Recorded Confirmed buPROPion XL [Wellbutrin XL] 150 mg PO DAILY 06/22/20 06/22/20 busPIRone HCL 5 mg PO BID 06/22/20 06/22/20 Previous Rx's Medication Instructions Recorded Acetaminophen Tab [Tylenol Tab] 650 mg PO Q4H PRN #30 tablet 06/26/20 Ketorolac [Toradol] 10 mg PO Q6HR PRN #10 tab 06/26/20 Omeprazole Magnesium [PriLOSEC OTC] 20 mg PO AC-BID #14 tablet. 06/26/20 Allergies Allergy/AdvReac Type Severity Reaction Status Date / Time ibuprofen AdvReac Nausea & Verified 03/21/21 12:13 Vomiting Milk Containing Products AdvReac Nausea & Verified 03/21/21 12:13 [Dairy] Vomiting orange juice [[place]] AdvReac Nausea & Verified 03/21/21 12:13 Vomiting Review of Systems ROS Statement: Those systems with pertinent positive or pertinent negative responses have been documented in the HPI. ROS Other: All systems not noted in ROS Statement are negative. 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 History of Any Multi-Drug Resistant Organisms: None Reported Past Surgical History: Adenoidectomy, Ear Surgery Additional Past Surgical History / Comment(s): acl reconstruction of left knee- 2013, Past Anesthesia/Blood Transfusion Reactions: No Reported Reaction Past Psychological History: Anxiety, Depression Smoking Status: Never smoker Past Alcohol Use History: None Reported Past Drug Use History: None Reported - Past Family History Mother Family Medical History: No Reported History Father Family Medical History: Hyperlipidemia Additional Family Medical History / Comment(s): none General Exam - General Exam Comments Initial Comments: GENERAL: Patient is well-developed and well-nourished. Patient is nontoxic and well- hydrated and is in mild distress. ENT: Neck is soft and supple. No significant lymphadenopathy is noted. Oropharynx is clear. Moist mucous membranes. Neck has full range of motion without eliciting any pain. EYES: The sclera were anicteric and conjunctiva were pink and moist. Extraocular movements were intact and pupils were equal round and reactive to light. Eyelids were unremarkable. PULMONARY: Unlabored respirations. Good breath sounds bilaterally. No audible rales rhonchi or wheezing was noted. CARDIOVASCULAR: There is a regular rate and rhythm without any murmurs gallops or rubs. ABDOMEN: Soft and nontender with normal bowel sounds. SKIN: Skin is clear with no lesions or rashes and otherwise unremarkable. NEUROLOGIC: Patient is alert and oriented x3. Cranial nerves II through XII are grossly intact. Motor and sensory are also intact. Normal speech, volume and content. Symmetrical smile. MUSCULOSKELETAL: Normal extremities with adequate strength and full range of motion. LYMPHATICS: No significant lymphadenopathy is noted PSYCHIATRIC: Normal psychiatric evaluation. Limitations: no limitations Course Vital Signs 03/21/21 03/21/21 12:07 12:21 Temperature 98.3 F Pulse Rate 93 Respiratory 20 18 Rate Blood Pressure 126/85 O2 Sat by Pulse 100 Oximetry Medical Decision Making - Medical Decision Making Chest x-ray shows no acute abnormality. Patient received [facility] emergency department. Patient and temperature of 100.0 Disposition Clinical Impression: COVID-19 Disposition: HOME SELF-CARE Instructions (If sedation given, give patient instructions): Coronavirus Disease 2019 (COVID-19) Is patient prescribed a controlled substance at d/c from ED?: No Referrals: Gerardo Diaz MD [Primary Care Provider] - 1-2 days Time of Disposition: 13:43
--- NOTE | 2021-03-21 13:11 | XR ---
EXAMINATION TYPE: XR chest 2V DATE OF EXAM: 03/21/2021 COMPARISON: Chest x-ray November 17, 2020 HISTORY: Difficulty in breathing. TECHNIQUE: Frontal and lateral views of the chest are obtained. FINDINGS: There is no suspicious focal air space opacity, pleural effusion, or pneumothorax seen. T he cardiac silhouette size remains within normal limits. Overlying bra strap on current study with re peat image performed . The osseous structures are intact. IMPRESSION: No acute cardiopulmonary process. No significant change from prior.
[2021-03-21 14:15] VITALS: BP 199/80; PULSE 87; TEMP 99.6
== END 2021-03-21 14:14 | disposition home or self-care (01) ==
LOC: EC 12:05
DX: U07.1 COVID-19 (principal); J45.909 Unspecified asthma, uncomplicated; F41.9 Anxiety disorder, unspecified; F32.A Depression, unspecified; Z88.6 Allergy status to analgesic agent
CPT/HCPCS: 71046; 99284

== ENCOUNTER → 2023-07-06 | Outpatient (CLI) | payer BC ==
[2023-07-06 11:58] LABS: Basophils % (A) 1 %; Eosinophils # (A) 0.1 k/uL (0-0.7); Eosinophils % (A) 3 %; HGB 14.7 gm/dL (11.4-16.0); Lymphocytes # (A) 1.5 k/uL (1.0-4.8); Lymphocytes % (A) 27 %; MCH 31.5 pg (25.0-35.0); MCHC 31.2 g/dL (31.0-37.0); MCV 100.9 fL (80.0-100.0); Mean Platelet Volume 8.2; Monocytes # (A) 0.4 k/uL (0-1.0); Monocytes % (A) 7 %; Neutrophils # (A) 3.5 k/uL (1.3-7.7); Neutrophils % (A) 62 %; Platelet Count 335 k/uL (150-450); RBC 4.66 m/uL (3.80-5.40); RDW 12.9 % (11.5-15.5); WBC 5.6 k/uL (3.8-10.6)
[2023-07-06 12:10] LABS: Total Eosinophil Count 140 #EOS/uL (150-300)
[2023-07-06 17:39] LABS: Alternaria alternata IgE <0.10 kU/L; Aspergillus fumagatus IgE <0.10 kU/L; Cladosporian herbarum IgE <0.10 kU/L; Dermato. farinae IgE <0.10 kU/L; Dog Dander IgE 0.34 kU/L; Elm IgE <0.10 kU/L; Maple (Box Elder) IgE <0.10 kU/L; Oak IgE <0.10 kU/L; Red Top (Bentgrass) IgE <0.10 kU/L
[2023-07-06 19:17] LABS: Birch IgE <0.10 kU/L; Cockroach IgE <0.10 kU/L; Ragweed,Common IgE <0.10 kU/L
[2023-07-06 22:56] LABS: Immunoglobulin E 52.2 IU/mL (0.00-114.00)
[2023-07-07 18:11] LABS: IgG Subclass 1 566.2 mg/dL (382.40-928.60); IgG Subclass 2 246.4 mg/dL (241.80-700.30); IgG Subclass 3 62.6 mg/dL (21.82-176.00); IgG Subclass 4 62.2 mg/dL (3.92-86.40)
== END | disposition home or self-care (01) ==
LOC: LABWHC1 10:52
PROVIDERS: ATTEND Internal Medicine
DX: J45.50 Severe persistent asthma, uncomplicated (principal); J40 Bronchitis, not specified as acute or chronic; J18.9 Pneumonia, unspecified organism
CPT/HCPCS: 36415; 82784; 82785; 82787; 85008; 85025; 86003

== ENCOUNTER → 2023-08-01 | Outpatient (CLI) | payer BC ==
--- NOTE | 2023-08-01 09:41 | CT ---
EXAMINATION TYPE: CT sinus w con DATE OF EXAM: 08/01/2023 COMPARISON: HISTORY: Allergic Rhinitis CT DLP: 532.5 mGycm CONTRAST: 100 ml mL of Isovue 300 The paranasal sinuses are examined in the axial plane at 2 mm thick sections. Reconstructed images i n the coronal plane were obtained. There is dental amalgam scatter artifact There is some probable oblique collection within the right maxillary sinus. No air-fluid levels evide nt. Significant mucosal thickening is not apparent. The ethmoid air cells are clear. The sphenoid s inuses are clear. The frontal sinuses are clear. The septum is evaluated. There is septal deviation to the right. The ostiomeatal units are obstructed. IMPRESSION: 1. There is some debris within these right maxillary sinus. The bilateral ostiomeatal units are obst ructed. No suspicious air-fluid levels or significant mucosal thickening is otherwise apparent.
== END | disposition home or self-care (01) ==
LOC: RADCTMAIN 07:24
PROVIDERS: ATTEND Otolaryngology
DX: J30.81 Allergic rhinitis due to animal (cat) (dog) hair and dander (principal)
CPT/HCPCS: 70487; Q9967

== ENCOUNTER → 2023-08-25 | Outpatient (CLI) | payer OTHER ==
--- NOTE | 2023-08-25 15:25 | US ---
EXAMINATION TYPE: US venous doppler duplex LE LT DATE OF EXAM: 08/25/2023 2:28 PM COMPARISON: NONE CLINICAL INDICATION: Female, 23 years old with history of M79.89 SWELLING LEFT LOWER R22.42 LOCALIZED SWELLING OF LEFT; lt ankle injury, edema SIDE PERFORMED: Left TECHNIQUE: The lower extremity deep venous system is examined utilizing real time linear array sonog [place] with graded compression, doppler sonography and color-flow sonography. VESSELS IMAGED: Common Femoral Vein Deep Femoral Vein Greater Saphenous Vein * Femoral Vein Popliteal Vein Small Saphenous Vein * Proximal Calf Veins (* superficial vessels) Left Leg: Negative for DVT exam limited by small vessel caliber and habitus IMPRESSION: Grayscale, color doppler, spectral doppler imaging performed of the deep veins of the lo wer extremities. There is normal flow, compressibility, vascular waveforms.
== END | disposition home or self-care (01) ==
LOC: RADUSWWP 14:02
PROVIDERS: ATTEND Family Medicine
DX: R22.42 Localized swelling, mass and lump, left lower limb (principal); M79.89 Other specified soft tissue disorders

== ENCOUNTER 2024-03-06 05:50 | Day surgery (SDC) | payer BC ==
[~2024-03-06 05:50] MED LIST: LIDOCAINE 1% (10MG/ML) FOR IV START INTRADERMA PRN; droPERidol 5 MG/2 ML VIAL IVP ONE
[2024-03-06] MEDS: OXYMETAZOLINE 0.05% NASL SPRAY 1 SPRAY BOTTLE EA NOSTRIL PRN (06:20)
[2024-03-06] MEDS: LACTATED RINGERS 1,000 ML IV ONE (06:49)
[2024-03-06] MEDS: FAMOTIDINE 20 MG/2 ML VIAL IV PRN (06:54)
[2024-03-06] MEDS: ONDANSETRON 4 MG/2 ML VIAL IVP ONE (06:54)
[2024-03-06] MEDS: LACTATED RINGERS 1,000 ML IV SCH (06:54)
[2024-03-06] MEDS: DEXAMETHASONE SOD PHOSPHATE 4 MG/ML 1 ML VIAL IV ONE (06:55)
[2024-03-06] MEDS ORDERED: HYDROmorphone 0.5 MG/0.5 ML SYRINGE IVP PRN (07:00)
[2024-03-06] MEDS ORDERED: fentaNYL (PF) 50 MCG/ML 2 ML AMP ONE (07:23)
[2024-03-06] MEDS ORDERED: MIDAZOLAM 2 MG/2 ML VIAL ONE (07:23)
[2024-03-06] MEDS ORDERED: PROPOFOL 10 MG/ML 20 ML VIAL IV ONE (07:23)
[2024-03-06] MEDS ORDERED: KETAMINE HCL IN 0.9 % NACL 50 MG/5 ML SYRINGE ONE (07:23)
[2024-03-06] MEDS ORDERED: LIDOCAINE 1% INJ 10MG/ML (20 ML MDV) ONE (07:23)
[2024-03-06] MEDS ORDERED: SUCCINYLCHOLINE CHLORIDE 200 MG/10 ML VIAL IV ONE (07:23)
[2024-03-06] MEDS: LIDOCAINE 1%-EPI 1:100,000 20 ML VIAL SUBMUCOSAL ONE ×2 (07:40)
[2024-03-06] MEDS: BACITRACIN ZINC 500 UNIT/GM OINT 28.4 GM TUBE TOPICAL ONE ×2 (07:48→08:27)
--- NOTE | 2024-03-06 08:55 | P.OP ---
Date of Procedure: 03/06/24 Preoperative Diagnosis: deviated nasal septum Inferior turbinate hypertrophy Chronic sinusitis Adenoid hypertrophy Postoperative Diagnosis: same Procedure(s) Performed: plasty Outfracture and submucous resection inferior turbinates Bilateral endoscopic sinus surgery including bilateral maxillary antrostomy and bilateral anterior ethmoidectomy Adenoidectomy/adenoids cauterization Anesthesia: TEJINDER Surgeon: Hammad He Estimated Blood Loss (ml): 10 Pathology: other (septum bone and cartilage sinus contents) Condition: stable Disposition: PACU Indications for Procedure: is a 23-year-old white female is had chronic nasal airway obstruction congestion and nasal airway obstruction and recurrent/chronic sinusitis Operative Findings: septum deviated to the right with inferior turbinate hypertrophy and ostial complex obstruction bilaterally mucosal thickening mild maxillary sinuses mild mucosal thickening in the ethmoid sinuses, mild adenoid hypertrophy obstructing approximately 20-30% of the nasopharynx Description of Procedure: The patient was brought into the operative suite and placed in a supine position. The patient underwent induction of general anesthesia with oral endotracheal intubation without difficulty. The patient was prepped and draped in the usual aseptic fashion with the orbits in the operating field for monitoring to the case and the computed tomography scan was on the computer screen for review throughout the case. 1% lidocaine with 1 :100,000 epinephrine was infused submucosally into both sides of the nasal septum as well as the lateral nasal wall and anterior tips of the middle turbinates. While this was taking vasoconstrictive effect the inferior turbinates were infractured with Donley elevator and partial submucous resection of the inferior turbinates was performed with a portion of the submucosal soft tissue and the inferior turbinate bone removed with Coblation device. The inferior turbinates were then outfractured with the Donley elevator. A left hemitransfixion incision was then made with the mucoperichondrial and mucoperiosteal flap on the left elevated. The bony cartilaginous junction was disarticulated and the mucoperiosteal flap on the right was elevated. Bony na joey septal deformities were removed with Flores forceps and an inferior cartilaginous strip was removed leaving a full 1.5 cm caudal strut. Checking intranasally this corrected the nasoseptal deformities and the hemitransfixion incision was closed with a running 4-0 chromic suture. Full 0 endoscopic examination is performed bilaterally. Beginning on the left, the middle turbinate was medialized. The maxillary ostium was located with a ballpoint probe and an infundibulotomy was performed followed by uncinectomy. The maxillary antrostomy was enlarged at the expense of the anterior and posterior fontanelle taking care anteriorly not to injure the lacrimal bone. The maxillary sinus was evaluated with 30 and 70 endoscope . Anterior ethmoidectomy were then performed from anterior to posterior to the level of the skull base. The roof of the anterior ethmoid air cells were then cleaned from posterior to anterior using up-biting Blakesley forceps. [Nasopore nasal dressing was placed in the middle meatus bilaterally under direct visualization]. Bilateral Edgar airway splints coated with bacitracin ointment were placed and sutured transseptally with a 4-0 nylon suture. the McIvor mouth gag was placed and soft palate was palpated. No submucous cleft was noted. Respiratory catheter was placed through the left nasal cavity and pulled through the oropharynx for soft palate retraction. The nasopharynx was examined with a mirror exam and the adenoids were ablated with suction cautery. Excellent hemostasis noted the catheter and McIvor mouthgag were removed. The patient was suctioned in oral gastric fashion and was allowed to emerge from general anesthesia having tolerated procedure well and was extubated in the operating suite and transferred to the postoperative recovery area in satisfactory condition.
[2024-03-06 08:58] VITALS: TEMP 98.1
[2024-03-06] MEDS: IV FLUID CONTINUATION 1,000 ML IV ONE (09:26)
[2024-03-06 10:19] VITALS: BP 126/84; PULSE 92; RESP 18
== END 2024-03-06 10:32 | disposition home or self-care (01) ==
LOC: OR 05:50
PROVIDERS: ATTEND Otolaryngology
DX: J34.2 Deviated nasal septum (principal); J34.3 Hypertrophy of nasal turbinates; J32.9 Chronic sinusitis, unspecified; J35.2 Hypertrophy of adenoids; J45.909 Unspecified asthma, uncomplicated; F32.A Depression, unspecified; F41.9 Anxiety disorder, unspecified; K21.9 Gastro-esophageal reflux disease without esophagitis; F54 Psychological and behavioral factors associated with disorders or diseases classified elsewhere; U07.0 Vaping-related disorder; Z89.522 Acquired absence of left knee; Z90.49 Acquired absence of other specified parts of digestive tract; Z91.040 Latex allergy status; Z88.6 Allergy status to analgesic agent; Z79.899 Other long term (current) drug therapy
CPT/HCPCS: 81025; 88305; 88300; 31256; 31254; 30140; 42831; J2250; J0330; J1100; J0690; J2405; J2003; J3010; J3490; J2704